=== PATIENT | female | born 1960 | race Hispanic/Latino ===

== ENCOUNTER 2018-05-07 13:20 | Emergency (ER) | payer BC, OTHER ==
[2018-05-07] MEDS ORDERED: NACL 0.9% 1000 ML 1,000 ML ONE ×2 (14:07→17:47)
[2018-05-07] MEDS ORDERED: NACL 0.9% 1000 ML 1,000 ML IV ONE ×2 (14:27→17:49)
[2018-05-07 14:34] LABS: Basophils % (Auto) 0.7 % (0.0-1.8); Eosinophils % (Auto) 0.8 % (0.0-4.3); Hematocrit 44.4 % (30.3-42.9); Hemoglobin 15.6 gm/dl (10.1-14.3); Lymphocytes # (Auto) 1.5 K/mm3 (1.2-5.4); Lymphocytes % (Auto) 24.2 % (13.4-35.0); Mean Corpuscular HGB Conc 35 % (30-34); Mean Corpuscular Volume 90 fl (79-97); Monocytes # (Auto) 0.6 K/mm3 (0.0-0.8); Monocytes % (Auto) 10.4 % (0.0-7.3); Platelet Count 373 K/mm3 (140-440); Red Blood Count 4.95 M/mm3 (3.65-5.03); Red Cell Distribution Width 12.3 % (13.2-15.2)
[2018-05-07 16:04] LABS: INR 0.95 (0.87-1.13); Partial Thromboplastin Time 27.7 Sec. (24.2-36.6)
[2018-05-07 16:14] LABS: Creatine Kinase MB 1.3 ng/mL (0.0-4.0)
--- NOTE | 2018-05-07 16:14 | XRay Report ---
FINAL REPORT EXAM: XR CHEST 1V AP HISTORY: hypertension TECHNIQUE: One view examination of the chest PRIORS: None FINDINGS: Slight thoracic spine curvature with lower right apex. Atherosclerotic change in the thoracic aorta. Degenerative change in the thoracic spine. There is no visible pulmonary consolidation, pleural effusion, or pneumothorax. Cardiac silhouette size is normal without vascular congestion. IMPRESSION: No evidence of acute cardiopulmonary disease in the visualized chest
[2018-05-07 16:18] LABS: Alanine Aminotransferase 14 units/L (7-56); Albumin 4.1 g/dL (3.9-5); BUN/Creatinine Ratio 20; Blood Urea Nitrogen 12 mg/dL (7-17); Calcium 8.9 mg/dL (8.4-10.2); Hemolysis Index 28
--- NOTE | 2018-05-07 16:26 | Emergency Department Report ---
ED General Adult HPI - General Chief complaint: Weakness Stated complaint: DEHYDRARTION Time Seen by Provider: 05/07/18 14:15 Source: patient Mode of arrival: Ambulatory Limitations: No Limitations - History of Present Illness Initial comments: The 7-year-old female complains of severe pain and an enlarging red area in her left thigh area. She states that she has had "for staph infections in the past. She complains of subjective fever and chills. She did not measure her temperature. -: days(s) Location: left, lower extremity Radiation: non-radiation Quality: aching Consistency: constant Improves with: none Worsens with: none Associated Symptoms: denies other symptoms Treatments Prior to Arrival: none - Related Data Allergies Allergy/AdvReac Type Severity Reaction Status Date / Time No Known Allergies Allergy Verified 05/07/18 13:35 ED Review of Systems ROS: Stated complaint: DEHYDRARTION Other details as noted in HPI Constitutional: chills, fever Eyes: denies: eye pain, eye discharge, vision change ENT: denies: ear pain, throat pain Respiratory: denies: cough, shortness of breath, wheezing Cardiovascular: denies: chest pain, palpitations Endocrine: no symptoms reported Gastrointestinal: denies: abdominal pain, nausea, diarrhea Genitourinary: denies: urgency, dysuria, discharge Musculoskeletal: denies: back pain, joint swelling, arthralgia Skin: denies: rash, lesions Neurological: denies: headache, weakness, paresthesias Psychiatric: denies: anxiety, depression Hematological/Lymphatic: denies: easy bleeding, easy bruising ED Past Medical Hx - Past Medical History Previous Medical History?: Yes Hx Psychiatric Treatment: Yes (depression) - Surgical History Past Surgical History?: No - Social History Smoking Status: Never Smoker Substance Use Type: Prescribed (admits oxycodone abuse) ED Physical Exam - General Limitations: No Limitations General appearance: alert, in no apparent distress - Head Head exam: Present: atraumatic, normocephalic - Eye Eye exam: Present: normal appearance. Absent: scleral icterus - ENT ENT exam: Present: mucous membranes moist - Neck Neck exam: Present: normal inspection. Absent: tenderness, meningismus - Respiratory Respiratory exam: Present: normal lung sounds bilaterally. Absent: respiratory distress - Cardiovascular Cardiovascular Exam: Present: regular rate, normal rhythm. Absent: systolic murmur, diastolic murmur, rubs, gallop - GI/Abdominal GI/Abdominal exam: Present: soft, normal bowel sounds. Absent: distended, tenderness, guarding, rebound, rigid - Extremities Exam Extremities exam: Present: other (large erythematous patch inner aspect of left thigh which is non-contiguous to the perineal or the groin. There is central fullness but not fer fluctuance. There is no tract or drainage.) - Back Exam Back exam: Present: normal inspection. Absent: tenderness, CVA tenderness (L) - Neurological Exam Neurological exam: Present: alert, oriented X3, CN II-XII intact. Absent: motor sensory deficit - Psychiatric Psychiatric exam: Present: normal affect, normal mood - Skin Skin exam: Present: warm, dry, intact, normal color. Absent: rash - Other Other exam information: Neurovascular exam is intact ED Course Vital Signs 05/07/18 05/07/18 05/07/18 13:36 14:12 14:16 Temperature 98.4 F Pulse Rate 82 81 76 Respiratory 16 13 13 Rate Blood Pressure 123/77 O2 Sat by Pulse 97 99 Oximetry 05/07/18 14:30 Temperature Pulse Rate 78 Respiratory 15 Rate Blood Pressure 148/86 O2 Sat by Pulse Oximetry - Reevaluation(s) Reevaluation #1: Patient was begun on vancomycin. She'll be admitted by Dr. Gallagher for further intravenous antibiotics. Surgical consult is ordered. 05/07/18 16:45 ED Medical Decision Making - Lab Data Result diagrams: 05/07/18 14:21 05/07/18 14:21 Laboratory Results - last 24 hr 05/07/18 05/07/18 05/07/18 14:21 14:21 14:21 WBC 6.0 RBC 4.95 Hgb 15.6 H Hct 44.4 H MCV 90 MCH 32 MCHC 35 H RDW 12.3 L Plt Count 373 Lymph % (Auto) 24.2 Floyd % (Auto) 10.4 H Eos % (Auto) 0.8 Baso % (Auto) 0.7 Lymph # 1.5 Floyd # 0.6 Eos # 0.0 Baso # 0.0 Seg Neutrophils % 63.9 Seg Neutrophils # 3.8 PT INR APTT Sodium 139 Potassium 3.8 Chloride 101.5 Carbon Dioxide 24 Anion Gap 17 BUN 12 Creatinine 0.6 L Estimated GFR > 60 BUN/Creatinine Ratio 20 Glucose 94 POC Glucose Calcium 8.9 Magnesium Total Bilirubin 0.50 AST 18 ALT 14 Alkaline Phosphatase 86 Ammonia Total Creatine Kinase CK-MB (CK-2) CK-MB (CK-2) Rel Index Troponin T NT-Pro-B Natriuret Pep Total Protein 6.5 Albumin 4.1 Albumin/Globulin Ratio 1.7 TSH 1.760 Plasma/Serum Alcohol 05/07/18 05/07/18 05/07/18 14:21 15:24 15:26 WBC RBC Hgb Hct MCV MCH MCHC RDW Plt Count Lymph % (Auto) Floyd % (Auto) Eos % (Auto) Baso % (Auto) Lymph # Floyd # Eos # Baso # Seg Neutrophils % Seg Neutrophils # PT 13.1 INR 0.95 APTT 27.7 Sodium Potassium Chloride Carbon Dioxide Anion Gap BUN Creatinine Estimated GFR BUN/Creatinine Ratio Glucose POC Glucose 94 Calcium Magnesium Total Bilirubin AST ALT Alkaline Phosphatase Ammonia Total Creatine Kinase CK-MB (CK-2) CK-MB (CK-2) Rel Index Troponin T NT-Pro-B Natriuret Pep Total Protein Albumin Albumin/Globulin Ratio TSH Plasma/Serum Alcohol < 0.01 05/07/18 05/07/18 05/07/18 15:26 15:26 15:26 WBC RBC Hgb Hct MCV MCH MCHC RDW Plt Count Lymph % (Auto) Floyd % (Auto) Eos % (Auto) Baso % (Auto) Lymph # Floyd # Eos # Baso # Seg Neutrophils % Seg Neutrophils # PT INR APTT Sodium Potassium Chloride Carbon Dioxide Anion Gap BUN Creatinine Estimated GFR BUN/Creatinine Ratio Glucose POC Glucose Calcium Magnesium 0.20 L* Total Bilirubin AST ALT Alkaline Phosphatase Ammonia 67.0 H Total Creatine Kinase < 7 L CK-MB (CK-2) 1.3 CK-MB (CK-2) Rel Index 0.0 Troponin T < 0.010 NT-Pro-B Natriuret Pep 27.66 Total Protein Albumin Albumin/Globulin Ratio TSH Plasma/Serum Alcohol Critical care attestation.: If time is entered above; I have spent that time in minutes in the direct care of this critically ill patient, excluding procedure time. ED Disposition Clinical Impression: Abscess of left thigh, Cellulitis of left thigh Disposition: OP ADMIT IP TO THIS HOSP Is pt being admited?: Yes Does the pt Need Aspirin: Yes Condition: Stable Time of Disposition: 16:46
[2018-05-07] MEDS ORDERED: BABY ASPIRIN PO ONE (16:47)
--- NOTE | 2018-05-07 16:54 | Emergency Department Report ---
ED General Adult HPI - General Chief complaint: Weakness Stated complaint: DEHYDRARTION Time Seen by Provider: 05/07/18 14:15 Source: patient Mode of arrival: Ambulatory Limitations: No Limitations - History of Present Illness Initial comments: Reviewed her old female was transferred from [place] with psychiatric [facility] for evaluation. She has not been eating or drinking well for the last week of hospitalization. Apparently she was depressed and I tried herself. She was medically cleared and sent to [place] for evaluation. She arrives and is not communicating but awake. I spoke with the patient's . He confirms that patient has not been eating or drinking much over the last week. She's been poorly communicative. She is less communicative today. However, as far as I can tell, she has been largely simply catatonic since she was admitted a week ago. - Related Data Previous Rx's Medication Instructions Recorded Last Taken Type levoFLOXacin [Levaquin TAB] 500 mg PO QDAY #7 tablet 05/07/18 Unknown Rx Allergies Allergy/AdvReac Type Severity Reaction Status Date / Time No Known Allergies Allergy Verified 05/07/18 13:35 ED Review of Systems ROS: Stated complaint: DEHYDRARTION Other details as noted in HPI Comment: Unobtainable due to pts medical conditions ED Past Medical Hx - Past Medical History Previous Medical History?: Yes Hx Psychiatric Treatment: Yes (depression) - Surgical History Past Surgical History?: No - Social History Smoking Status: Never Smoker Substance Use Type: Prescribed (admits oxycodone abuse) - Medications Home Medications: Home Medications Medication Instructions Recorded Confirmed Last Taken Type levoFLOXacin [Levaquin TAB] 500 mg PO QDAY #7 tablet 05/07/18 Unknown Rx ED Physical Exam - General Limitations: Altered Mental Status (patient is basically somewhat catatonic) General appearance: alert, in no apparent distress - Head Head exam: Present: atraumatic - Eye Eye exam: Present: normal appearance. Absent: scleral icterus - ENT ENT exam: Present: mucous membranes moist - Neck Neck exam: Present: normal inspection. Absent: tenderness, meningismus - Respiratory Respiratory exam: Present: normal lung sounds bilaterally. Absent: respiratory distress - Cardiovascular Cardiovascular Exam: Present: regular rate, normal rhythm. Absent: systolic murmur, diastolic murmur, rubs, gallop - GI/Abdominal GI/Abdominal exam: Present: soft, normal bowel sounds. Absent: distended, tenderness, guarding, rebound, rigid - Extremities Exam Extremities exam: Present: normal inspection - Back Exam Back exam: Present: normal inspection - Neurological Exam Neurological exam: Present: alert, oriented X3, CN II-XII intact. Absent: motor sensory deficit - Psychiatric Psychiatric exam: Present: normal affect, normal mood - Skin Skin exam: Present: warm, dry, intact, normal color. Absent: rash ED Course Vital Signs 05/07/18 05/07/18 05/07/18 13:36 14:12 14:16 Temperature 98.4 F Pulse Rate 82 81 76 Respiratory 16 13 13 Rate Blood Pressure 123/77 O2 Sat by Pulse 97 99 Oximetry 05/07/18 14:30 Temperature Pulse Rate 78 Respiratory 15 Rate Blood Pressure 148/86 O2 Sat by Pulse Oximetry ED Medical Decision Making - Lab Data Result diagrams: 05/07/18 14:21 05/07/18 14:21 Laboratory Results - last 24 hr 05/07/18 05/07/18 05/07/18 14:21 14:21 14:21 WBC 6.0 RBC 4.95 Hgb 15.6 H Hct 44.4 H MCV 90 MCH 32 MCHC 35 H RDW 12.3 L Plt Count 373 Lymph % (Auto) 24.2 Nicholas % (Auto) 10.4 H Eos % (Auto) 0.8 Baso % (Auto) 0.7 Lymph # 1.5 Nicholas # 0.6 Eos # 0.0 Baso # 0.0 Seg Neutrophils % 63.9 Seg Neutrophils # 3.8 PT INR APTT Sodium 139 Potassium 3.8 Chloride 101.5 Carbon Dioxide 24 Anion Gap 17 BUN 12 Creatinine 0.6 L Estimated GFR > 60 BUN/Creatinine Ratio 20 Glucose 94 POC Glucose Calcium 8.9 Magnesium Total Bilirubin 0.50 AST 18 ALT 14 Alkaline Phosphatase 86 Ammonia Total Creatine Kinase CK-MB (CK-2) CK-MB (CK-2) Rel Index Troponin T NT-Pro-B Natriuret Pep Total Protein 6.5 Albumin 4.1 Albumin/Globulin Ratio 1.7 TSH 1.760 Plasma/Serum Alcohol 05/07/18 05/07/18 05/07/18 14:21 15:24 15:26 WBC RBC Hgb Hct MCV MCH MCHC RDW Plt Count Lymph % (Auto) Nicholas % (Auto) Eos % (Auto) Baso % (Auto) Lymph # Nicholas # Eos # Baso # Seg Neutrophils % Seg Neutrophils # PT 13.1 INR 0.95 APTT 27.7 Sodium Potassium Chloride Carbon Dioxide Anion Gap BUN Creatinine Estimated GFR BUN/Creatinine Ratio Glucose POC Glucose 94 Calcium Magnesium Total Bilirubin AST ALT Alkaline Phosphatase Ammonia Total Creatine Kinase CK-MB (CK-2) CK-MB (CK-2) Rel Index Troponin T NT-Pro-B Natriuret Pep Total Protein Albumin Albumin/Globulin Ratio TSH Plasma/Serum Alcohol < 0.01 05/07/18 05/07/18 05/07/18 15:26 15:26 15:26 WBC RBC Hgb Hct MCV MCH MCHC RDW Plt Count Lymph % (Auto) Nicholas % (Auto) Eos % (Auto) Baso % (Auto) Lymph # Nicholas # Eos # Baso # Seg Neutrophils % Seg Neutrophils # PT INR APTT Sodium Potassium Chloride Carbon Dioxide Anion Gap BUN Creatinine Estimated GFR BUN/Creatinine Ratio Glucose POC Glucose Calcium Magnesium 0.20 L* Total Bilirubin AST ALT Alkaline Phosphatase Ammonia 67.0 H Total Creatine Kinase < 7 L CK-MB (CK-2) 1.3 CK-MB (CK-2) Rel Index 0.0 Troponin T < 0.010 NT-Pro-B Natriuret Pep 27.66 Total Protein Albumin Albumin/Globulin Ratio TSH Plasma/Serum Alcohol 05/07/18 15:26 WBC RBC Hgb Hct MCV MCH MCHC RDW Plt Count Lymph % (Auto) Nicholas % (Auto) Eos % (Auto) Baso % (Auto) Lymph # Nicholas # Eos # Baso # Seg Neutrophils % Seg Neutrophils # PT INR APTT Sodium Potassium Chloride Carbon Dioxide Anion Gap BUN Creatinine Estimated GFR BUN/Creatinine Ratio Glucose POC Glucose Calcium Magnesium Total Bilirubin AST ALT Alkaline Phosphatase Ammonia Total Creatine Kinase CK-MB (CK-2) CK-MB (CK-2) Rel Index Troponin T NT-Pro-B Natriuret Pep Total Protein Albumin Albumin/Globulin Ratio TSH 1.560 Plasma/Serum Alcohol Laboratory Results - last 24 hr 05/07/18 05/07/18 05/07/18 14:21 14:21 14:21 WBC 6.0 RBC 4.95 Hgb 15.6 H Hct 44.4 H MCV 90 MCH 32 MCHC 35 H RDW 12.3 L Plt Count 373 Lymph % (Auto) 24.2 Nicholas % (Auto) 10.4 H Eos % (Auto) 0.8 Baso % (Auto) 0.7 Lymph # 1.5 Nicholas # 0.6 Eos # 0.0 Baso # 0.0 Seg Neutrophils % 63.9 Seg Neutrophils # 3.8 PT INR APTT Sodium 139 Potassium 3.8 Chloride 101.5 Carbon Dioxide 24 Anion Gap 17 BUN 12 Creatinine 0.6 L Estimated GFR > 60 BUN/Creatinine Ratio 20 Glucose 94 POC Glucose Calcium 8.9 Magnesium Total Bilirubin 0.50 AST 18 ALT 14 Alkaline Phosphatase 86 Ammonia Total Creatine Kinase CK-MB (CK-2) CK-MB (CK-2) Rel Index Troponin T NT-Pro-B Natriuret Pep Total Protein 6.5 Albumin 4.1 Albumin/Globulin Ratio 1.7 TSH 1.760 Plasma/Serum Alcohol 05/07/18 05/07/18 05/07/18 14:21 15:24 15:26 WBC RBC Hgb Hct MCV MCH MCHC RDW Plt Count Lymph % (Auto) Nicholas % (Auto) Eos % (Auto) Baso % (Auto) Lymph # Nicholas # Eos # Baso # Seg Neutrophils % Seg Neutrophils # PT 13.1 INR 0.95 APTT 27.7 Sodium Potassium Chloride Carbon Dioxide Anion Gap BUN Creatinine Estimated GFR BUN/Creatinine Ratio Glucose POC Glucose 94 Calcium Magnesium Total Bilirubin AST ALT Alkaline Phosphatase Ammonia Total Creatine Kinase CK-MB (CK-2) CK-MB (CK-2) Rel Index Troponin T NT-Pro-B Natriuret Pep Total Protein Albumin Albumin/Globulin Ratio TSH Plasma/Serum Alcohol < 0.01 05/07/18 05/07/18 05/07/18 15:26 15:26 15:26 WBC RBC Hgb Hct MCV MCH MCHC RDW Plt Count Lymph % (Auto) Nicholas % (Auto) Eos % (Auto) Baso % (Auto) Lymph # Nicholas # Eos # Baso # Seg Neutrophils % Seg Neutrophils # PT INR APTT Sodium Potassium Chloride Carbon Dioxide Anion Gap BUN Creatinine Estimated GFR BUN/Creatinine Ratio Glucose POC Glucose Calcium Magnesium 0.20 L* Total Bilirubin AST ALT Alkaline Phosphatase Ammonia 67.0 H Total Creatine Kinase < 7 L CK-MB (CK-2) 1.3 CK-MB (CK-2) Rel Index 0.0 Troponin T < 0.010 NT-Pro-B Natriuret Pep 27.66 Total Protein Albumin Albumin/Globulin Ratio TSH Plasma/Serum Alcohol 05/07/18 15:26 WBC RBC Hgb Hct MCV MCH MCHC RDW Plt Count Lymph % (Auto) Nicholas % (Auto) Eos % (Auto) Baso % (Auto) Lymph # Nicholas # Eos # Baso # Seg Neutrophils % Seg Neutrophils # PT INR APTT Sodium Potassium Chloride Carbon Dioxide Anion Gap BUN Creatinine Estimated GFR BUN/Creatinine Ratio Glucose POC Glucose Calcium Magnesium Total Bilirubin AST ALT Alkaline Phosphatase Ammonia Total Creatine Kinase CK-MB (CK-2) CK-MB (CK-2) Rel Index Troponin T NT-Pro-B Natriuret Pep Total Protein Albumin Albumin/Globulin Ratio TSH 1.560 Plasma/Serum Alcohol Laboratory Results - last 24 hr 05/07/18 05/07/18 05/07/18 14:21 14:21 14:21 WBC 6.0 RBC 4.95 Hgb 15.6 H Hct 44.4 H MCV 90 MCH 32 MCHC 35 H RDW 12.3 L Plt Count 373 Lymph % (Auto) 24.2 Nicholas % (Auto) 10.4 H Eos % (Auto) 0.8 Baso % (Auto) 0.7 Lymph # 1.5 Nicholas # 0.6 Eos # 0.0 Baso # 0.0 Seg Neutrophils % 63.9 Seg Neutrophils # 3.8 PT INR APTT Sodium 139 Potassium 3.8 Chloride 101.5 Carbon Dioxide 24 Anion Gap 17 BUN 12 Creatinine 0.6 L Estimated GFR > 60 BUN/Creatinine Ratio 20 Glucose 94 POC Glucose Calcium 8.9 Magnesium Total Bilirubin 0.50 AST 18 ALT 14 Alkaline Phosphatase 86 Ammonia Total Creatine Kinase CK-MB (CK-2) CK-MB (CK-2) Rel Index Troponin T NT-Pro-B Natriuret Pep Total Protein 6.5 Albumin 4.1 Albumin/Globulin Ratio 1.7 TSH 1.760 Plasma/Serum Alcohol 05/07/18 05/07/18 05/07/18 14:21 15:24 15:26 WBC RBC Hgb Hct MCV MCH MCHC RDW Plt Count Lymph % (Auto) Nicholas % (Auto) Eos % (Auto) Baso % (Auto) Lymph # Nicholas # Eos # Baso # Seg Neutrophils % Seg Neutrophils # PT 13.1 INR 0.95 APTT 27.7 Sodium Potassium Chloride Carbon Dioxide Anion Gap BUN Creatinine Estimated GFR BUN/Creatinine Ratio Glucose POC Glucose 94 Calcium Magnesium Total Bilirubin AST ALT Alkaline Phosphatase Ammonia Total Creatine Kinase CK-MB (CK-2) CK-MB (CK-2) Rel Index Troponin T NT-Pro-B Natriuret Pep Total Protein Albumin Albumin/Globulin Ratio TSH Plasma/Serum Alcohol < 0.01 05/07/18 05/07/18 05/07/18 15:26 15:26 15:26 WBC RBC Hgb Hct MCV MCH MCHC RDW Plt Count Lymph % (Auto) Nicholas % (Auto) Eos % (Auto) Baso % (Auto) Lymph # Nicholas # Eos # Baso # Seg Neutrophils % Seg Neutrophils # PT INR APTT Sodium Potassium Chloride Carbon Dioxide Anion Gap BUN Creatinine Estimated GFR BUN/Creatinine Ratio Glucose POC Glucose Calcium Magnesium 0.20 L* Total Bilirubin AST ALT Alkaline Phosphatase Ammonia 67.0 H Total Creatine Kinase < 7 L CK-MB (CK-2) 1.3 CK-MB (CK-2) Rel Index 0.0 Troponin T < 0.010 NT-Pro-B Natriuret Pep 27.66 Total Protein Albumin Albumin/Globulin Ratio TSH Plasma/Serum Alcohol 05/07/18 15:26 WBC RBC Hgb Hct MCV MCH MCHC RDW Plt Count Lymph % (Auto) Nicholas % (Auto) Eos % (Auto) Baso % (Auto) Lymph # Nicholas # Eos # Baso # Seg Neutrophils % Seg Neutrophils # PT INR APTT Sodium Potassium Chloride Carbon Dioxide Anion Gap BUN Creatinine Estimated GFR BUN/Creatinine Ratio Glucose POC Glucose Calcium Magnesium Total Bilirubin AST ALT Alkaline Phosphatase Ammonia Total Creatine Kinase CK-MB (CK-2) CK-MB (CK-2) Rel Index Troponin T NT-Pro-B Natriuret Pep Total Protein Albumin Albumin/Globulin Ratio TSH 1.560 Plasma/Serum Alcohol Laboratory Results - last 24 hr 05/07/18 05/07/18 05/07/18 14:21 14:21 14:21 WBC 6.0 RBC 4.95 Hgb 15.6 H Hct 44.4 H MCV 90 MCH 32 MCHC 35 H RDW 12.3 L Plt Count 373 Lymph % (Auto) 24.2 Nicholas % (Auto) 10.4 H Eos % (Auto) 0.8 Baso % (Auto) 0.7 Lymph # 1.5 Nicholas # 0.6 Eos # 0.0 Baso # 0.0 Seg Neutrophils % 63.9 Seg Neutrophils # 3.8 PT INR APTT Sodium 139 Potassium 3.8 Chloride 101.5 Carbon Dioxide 24 Anion Gap 17 BUN 12 Creatinine 0.6 L Estimated GFR > 60 BUN/Creatinine Ratio 20 Glucose 94 POC Glucose Calcium 8.9 Magnesium Total Bilirubin 0.50 AST 18 ALT 14 Alkaline Phosphatase 86 Ammonia Total Creatine Kinase CK-MB (CK-2) CK-MB (CK-2) Rel Index Troponin T NT-Pro-B Natriuret Pep Total Protein 6.5 Albumin 4.1 Albumin/Globulin Ratio 1.7 TSH 1.760 Plasma/Serum Alcohol 05/07/18 05/07/18 05/07/18 14:21 15:24 15:26 WBC RBC Hgb Hct MCV MCH MCHC RDW Plt Count Lymph % (Auto) Nicholas % (Auto) Eos % (Auto) Baso % (Auto) Lymph # Nicholas # Eos # Baso # Seg Neutrophils % Seg Neutrophils # PT 13.1 INR 0.95 APTT 27.7 Sodium Potassium Chloride Carbon Dioxide Anion Gap BUN Creatinine Estimated GFR BUN/Creatinine Ratio Glucose POC Glucose 94 Calcium Magnesium Total Bilirubin AST ALT Alkaline Phosphatase Ammonia Total Creatine Kinase CK-MB (CK-2) CK-MB (CK-2) Rel Index Troponin T NT-Pro-B Natriuret Pep Total Protein Albumin Albumin/Globulin Ratio TSH Plasma/Serum Alcohol < 0.01 05/07/18 05/07/18 05/07/18 15:26 15:26 15:26 WBC RBC Hgb Hct MCV MCH MCHC RDW Plt Count Lymph % (Auto) Nicholas % (Auto) Eos % (Auto) Baso % (Auto) Lymph # Nicholas # Eos # Baso # Seg Neutrophils % Seg Neutrophils # PT INR APTT Sodium Potassium Chloride Carbon Dioxide Anion Gap BUN Creatinine Estimated GFR BUN/Creatinine Ratio Glucose POC Glucose Calcium Magnesium 0.20 L* Total Bilirubin AST ALT Alkaline Phosphatase Ammonia 67.0 H Total Creatine Kinase < 7 L CK-MB (CK-2) 1.3 CK-MB (CK-2) Rel Index 0.0 Troponin T < 0.010 NT-Pro-B Natriuret Pep 27.66 Total Protein Albumin Albumin/Globulin Ratio TSH Plasma/Serum Alcohol 05/07/18 15:26 WBC RBC Hgb Hct MCV MCH MCHC RDW Plt Count Lymph % (Auto) Nicholas % (Auto) Eos % (Auto) Baso % (Auto) Lymph # Nicholas # Eos # Baso # Seg Neutrophils % Seg Neutrophils # PT INR APTT Sodium Potassium Chloride Carbon Dioxide Anion Gap BUN Creatinine Estimated GFR BUN/Creatinine Ratio Glucose POC Glucose Calcium Magnesium Total Bilirubin AST ALT Alkaline Phosphatase Ammonia Total Creatine Kinase CK-MB (CK-2) CK-MB (CK-2) Rel Index Troponin T NT-Pro-B Natriuret Pep Total Protein Albumin Albumin/Globulin Ratio TSH 1.560 Plasma/Serum Alcohol Laboratory Results - last 24 hr 05/07/18 05/07/18 05/07/18 14:21 14:21 14:21 WBC 6.0 RBC 4.95 Hgb 15.6 H Hct 44.4 H MCV 90 MCH 32 MCHC 35 H RDW 12.3 L Plt Count 373 Lymph % (Auto) 24.2 Nicholas % (Auto) 10.4 H Eos % (Auto) 0.8 Baso % (Auto) 0.7 Lymph # 1.5 Nicholas # 0.6 Eos # 0.0 Baso # 0.0 Seg Neutrophils % 63.9 Seg Neutrophils # 3.8 PT INR APTT Sodium 139 Potassium 3.8 Chloride 101.5 Carbon Dioxide 24 Anion Gap 17 BUN 12 Creatinine 0.6 L Estimated GFR > 60 BUN/Creatinine Ratio 20 Glucose 94 POC Glucose Calcium 8.9 Magnesium Total Bilirubin 0.50 AST 18 ALT 14 Alkaline Phosphatase 86 Ammonia Total Creatine Kinase CK-MB (CK-2) CK-MB (CK-2) Rel Index Troponin T NT-Pro-B Natriuret Pep Total Protein 6.5 Albumin 4.1 Albumin/Globulin Ratio 1.7 TSH 1.760 Urine Color Urine Turbidity Urine pH Ur Specific [place] Urine Protein Urine Glucose (UA) Urine Ketones Urine Blood Urine Nitrite Urine Bilirubin Urine Urobilinogen Ur Leukocyte Esterase Urine WBC (Auto) Urine RBC (Auto) Urine Bacteria (Auto) Urine Mucus Urine Yeast (Budding) Urine Opiates Screen Urine Methadone Screen Ur Barbiturates Screen Ur Phencyclidine Scrn Ur Amphetamines Screen U Benzodiazepines Scrn Urine Cocaine Screen U Marijuana (THC) Screen Drugs of Abuse Note Plasma/Serum Alcohol 05/07/18 05/07/18 05/07/18 14:21 15:24 15:26 WBC RBC Hgb Hct MCV MCH MCHC RDW Plt Count Lymph % (Auto) Nicholas % (Auto) Eos % (Auto) Baso % (Auto) Lymph # Nicholas # Eos # Baso # Seg Neutrophils % Seg Neutrophils # PT 13.1 INR 0.95 APTT 27.7 Sodium Potassium Chloride Carbon Dioxide Anion Gap BUN Creatinine Estimated GFR BUN/Creatinine Ratio Glucose POC Glucose 94 Calcium Magnesium Total Bilirubin AST ALT Alkaline Phosphatase Ammonia Total Creatine Kinase CK-MB (CK-2) CK-MB (CK-2) Rel Index Troponin T NT-Pro-B Natriuret Pep Total Protein Albumin Albumin/Globulin Ratio TSH Urine Color Urine Turbidity Urine pH Ur Specific [place] Urine Protein Urine Glucose (UA) Urine Ketones Urine Blood Urine Nitrite Urine Bilirubin Urine Urobilinogen Ur Leukocyte Esterase Urine WBC (Auto) Urine RBC (Auto) Urine Bacteria (Auto) Urine Mucus Urine Yeast (Budding) Urine Opiates Screen Urine Methadone Screen Ur Barbiturates Screen Ur Phencyclidine Scrn Ur Amphetamines Screen U Benzodiazepines Scrn Urine Cocaine Screen U Marijuana (THC) Screen Drugs of Abuse Note Plasma/Serum Alcohol < 0.01 05/07/18 05/07/18 05/07/18 15:26 15:26 15:26 WBC RBC Hgb Hct MCV MCH MCHC RDW Plt Count Lymph % (Auto) Nicholas % (Auto) Eos % (Auto) Baso % (Auto) Lymph # Nicholas # Eos # Baso # Seg Neutrophils % Seg Neutrophils # PT INR APTT Sodium Potassium Chloride Carbon Dioxide Anion Gap BUN Creatinine Estimated GFR BUN/Creatinine Ratio Glucose POC Glucose Calcium Magnesium 0.20 L* Total Bilirubin AST ALT Alkaline Phosphatase Ammonia 67.0 H Total Creatine Kinase < 7 L CK-MB (CK-2) 1.3 CK-MB (CK-2) Rel Index 0.0 Troponin T < 0.010 NT-Pro-B Natriuret Pep 27.66 Total Protein Albumin Albumin/Globulin Ratio TSH Urine Color Urine Turbidity Urine pH Ur Specific [place] Urine Protein Urine Glucose (UA) Urine Ketones Urine Blood Urine Nitrite Urine Bilirubin Urine Urobilinogen Ur Leukocyte Esterase Urine WBC (Auto) Urine RBC (Auto) Urine Bacteria (Auto) Urine Mucus Urine Yeast (Budding) Urine Opiates Screen Urine Methadone Screen Ur Barbiturates Screen Ur Phencyclidine Scrn Ur Amphetamines Screen U Benzodiazepines Scrn Urine Cocaine Screen U Marijuana (THC) Screen Drugs of Abuse Note Plasma/Serum Alcohol 05/07/18 05/07/18 05/07/18 15:26 Unknown Unknown WBC RBC Hgb Hct MCV MCH MCHC RDW Plt Count Lymph % (Auto) Nicholas % (Auto) Eos % (Auto) Baso % (Auto) Lymph # Nicholas # Eos # Baso # Seg Neutrophils % Seg Neutrophils # PT INR APTT Sodium Potassium Chloride Carbon Dioxide Anion Gap BUN Creatinine Estimated GFR BUN/Creatinine Ratio Glucose POC Glucose Calcium Magnesium Total Bilirubin AST ALT Alkaline Phosphatase Ammonia Total Creatine Kinase CK-MB (CK-2) CK-MB (CK-2) Rel Index Troponin T NT-Pro-B Natriuret Pep Total Protein Albumin Albumin/Globulin Ratio TSH 1.560 Urine Color Yellow Urine Turbidity Clear Urine pH 6.0 Ur Specific [place] 1.010 Urine Protein <15 mg/dl Urine Glucose (UA) Neg Urine Ketones Neg Urine Blood Neg Urine Nitrite Neg Urine Bilirubin Neg Urine Urobilinogen < 2.0 Ur Leukocyte Esterase Lg Urine WBC (Auto) 24.0 H Urine RBC (Auto) 5.0 Urine Bacteria (Auto) 1+ Urine Mucus Few Urine Yeast (Budding) Few Urine Opiates Screen Presumptive negative Urine Methadone Screen Presumptive negative Ur Barbiturates Screen Presumptive negative Ur Phencyclidine Scrn Presumptive negative Ur Amphetamines Screen Presumptive negative U Benzodiazepines Scrn Presumptive negative Urine Cocaine Screen Presumptive negative U Marijuana (THC) Screen Presumptive negative Drugs of Abuse Note Disclamer Plasma/Serum Alcohol Critical care attestation.: If time is entered above; I have spent that time in minutes in the direct care of this critically ill patient, excluding procedure time. ED Disposition Clinical Impression: Catatonia, Dehydration UTI (urinary tract infection) Qualifiers: Urinary tract infection type: site unspecified Hematuria presence: without hematuria Qualified Code(s): N39.0 - Urinary tract infection, site not specified Disposition: [id number]/TX-65 PSY HOSP/PSY UNIT Is pt being admited?: No Does the pt Need Aspirin: No Condition: Stable Instructions: Urinary Tract Infection in Women (ED), Dehydration (ED) Additional Instructions: Patient was found to have urinary tract infection. She was treated with ceftriaxone 1 g IV. Urine culture is pending. A prescription for Levaquin is written. This should be able treatment for her UTI. However the culture should be checked. Return to the emergency department as needed for lack of by mouth intake. However the patient would be best treated in a psychiatric facility for her catatonic state. Prescriptions: levoFLOXacin [Levaquin TAB] 500 mg PO QDAY #7 tablet Referrals: PRIMARY CARE, [Primary Care Provider] - 3-5 Days usual, covering manager laundry [Other] - 24 Hours Time of Disposition: 19:23
[2018-05-07] MEDS ORDERED: MAGNESIUM SULFATE 2GM/50ML 2 GM/50 ML BAG IV ONE (17:00)
--- NOTE | 2018-05-07 17:06 | Cat Scan Report ---
FINAL REPORT EXAM: CT HEAD WO CONTRAST HISTORY: AMS TECHNIQUE: CT examination of the head without IV contrast PRIORS: None. FINDINGS: No acute air-fluid level visualized in the included air-filled sinuses. Bone windows demonstrate no acute fracture. There is ventricular and sulcal prominence compatible with global cerebrocortical atrophy. The brain contains no mass, mass effect, hemorrhage, or acute infarct. There is no extra-axial intracranial bleed, brain bleed, or midline shift. IMPRESSION: No acute CVA, intracranial bleed, or brain mass
[2018-05-07 18:55] LABS: Bilirubin,Urine NEG (Negative); Color,Urine Yellow (Yellow)
[2018-05-07 18:56] LABS: Bacteria,Urine 1+ /HPF (Negative); Blood,Urine NEG (Negative); Mucus,Urine FEW /HPF; Protein,Urine <15 mg/dL mg/dL (Negative); Urobilinogen,Urine < 2.0 mg/dL (<2.0)
[2018-05-07 18:59] LABS: Amphetamine Screen,Urine PRESUMPTIVE NEGATIVE; Benzodiazepines Screen,Urine PRESUMPTIVE NEGATIVE; Cannabinoid Screen,Urine PRESUMPTIVE NEGATIVE; Cocaine Screen,Urine PRESUMPTIVE NEGATIVE; Methadone Screen,Urine PRESUMPTIVE NEGATIVE; Opiate Screen,Urine PRESUMPTIVE NEGATIVE
[2018-05-07] MEDS ORDERED: ROCEPHIN/NS 1 GM/50 ML 1 GM/50 ML BAG IV ONE (19:20)
[2018-05-07 21:37] VITALS: BP 138/75
== END 2018-05-07 22:03 ==
LOC: ED 13:20
DX: F20.2 Catatonic schizophrenia (principal); E86.0 Dehydration; N39.0 Urinary tract infection, site not specified
CPT/HCPCS: 36415; 70450; 71045; 80053; 80307; 81001; 82140; 82550; 82553; 82962; 83735; 83880; 84443; 84484; 85025; 85610; 85730; 87040; 96361; 96365; 96367; 99285; G0480; J0696; J3475; J7030; 80320

== ENCOUNTER 2018-05-10 12:39 | Emergency (ER) | payer BC ==
[2018-05-10 14:12] LABS: Basophils % (Auto) 0.7 % (0.0-1.8); Eosinophils # (Auto) 0.1 K/mm3 (0.0-0.4); Eosinophils % (Auto) 1.6 % (0.0-4.3); Hematocrit 41.7 % (30.3-42.9); Hemoglobin 14.2 gm/dl (10.1-14.3); Lymphocytes # (Auto) 1.2 K/mm3 (1.2-5.4); Lymphocytes % (Auto) 23.1 % (13.4-35.0); Mean Corpuscular HGB Conc 34 % (30-34); Mean Corpuscular Volume 91 fl (79-97); Monocytes # (Auto) 0.7 K/mm3 (0.0-0.8); Monocytes % (Auto) 13.1 % (0.0-7.3); Platelet Count 337 K/mm3 (140-440); Red Blood Count 4.57 M/mm3 (3.65-5.03); Red Cell Distribution Width 12.2 % (13.2-15.2)
--- NOTE | 2018-05-10 14:24 | Emergency Department Report ---
HPI - General Chief Complaint: Altered Mental Status Time Seen by Provider: 05/10/18 13:47 - HPI HPI: Room 10 The patient is a 49-year-old female presented with a chief complaint of "delirium." The patient is currently at [facility] for depression. Per EMS the patient has been nonverbal. Per [facility] transfer note at 09:50 there was an order to "send patient to ED due to delirium. CT scan of head to rule out any abnormalities of the brain that would be causing the delirium." The patient does not answer questions but just shakes her head "no" when asked if anything is bothering her Location: Mental state Duration: [See above] Quality: Nonverbal Severity: Moderate Modifying factors: [see above] Context: [see above] Mode of transportation: [not driving] ED Past Medical Hx - Past Medical History Previous Medical History?: Yes Hx Psychiatric Treatment: Yes (depression) - Family History Family history: no significant - Social History Smoking Status: Unknown if ever smoked - Medications Home Medications: Home Medications Medication Instructions Recorded Confirmed Last Taken Type levoFLOXacin [Levaquin TAB] 500 mg PO QDAY #7 tablet 05/07/18 Unknown Rx ED Review of Systems ROS: Stated complaint: CT SCAN Other details as noted in HPI Comment: Unobtainable due to pts medical conditions Physical Exam - Physical Exam Vital Signs: Vital Signs 05/10/18 13:20 Temperature 98.4 F Pulse Rate 84 Blood Pressure 130/74 O2 Sat by Pulse 99 Oximetry Physical Exam: GENERAL: The patient is well-developed well-nourished female lying on stretcher not appearing to be in acute distress. [] HEENT: Normocephalic. Atraumatic. Patient has moist mucous membranes. NECK: Supple. Trachea midline CHEST/LUNGS: Clear to auscultation. There is no respiratory distress noted. HEART/CARDIOVASCULAR: Regular. There is no tachycardia. There is no gallop rub or murmur. ABDOMEN: Abdomen is soft, nontender. Patient has normal bowel sounds. There is no abdominal distention. SKIN: There is no rash. There is no edema. There is no diaphoresis. NEURO: The patient is awake but keeps her eyes closed. The patient does not speak but shakes her head "no" MUSCULOSKELETAL: There is no evidence of acute injury. ED Course Vital Signs 05/10/18 13:20 Temperature 98.4 F Pulse Rate 84 Blood Pressure 130/74 O2 Sat by Pulse 99 Oximetry ED Medical Decision Making - Lab Data Result diagrams: 05/10/18 14:00 05/10/18 14:00 Laboratory Tests 05/10/18 05/10/18 05/10/18 14:00 14:00 14:00 WBC 5.2 RBC 4.57 Hgb 14.2 Hct 41.7 MCV 91 MCH 31 MCHC 34 RDW 12.2 L Plt Count 337 Lymph % (Auto) 23.1 [place] % (Auto) 13.1 H Eos % (Auto) 1.6 Baso % (Auto) 0.7 Lymph # 1.2 [place] # 0.7 Eos # 0.1 Baso # 0.0 Seg Neutrophils % 61.5 Seg Neutrophils # 3.2 Sodium 142 Potassium 4.2 Chloride 102.2 Carbon Dioxide 31 H D Anion Gap 13 BUN 15 Creatinine 0.7 Estimated GFR > 60 BUN/Creatinine Ratio 21 Glucose 102 H Calcium 9.5 Total Bilirubin 0.30 AST 19 ALT 13 Alkaline Phosphatase 73 Ammonia 30.0 Total Creatine Kinase 312 H CK-MB (CK-2) 1.8 CK-MB (CK-2) Rel Index 0.5 Troponin T < 0.010 Total Protein 6.6 Albumin 4.0 Albumin/Globulin Ratio 1.5 Plasma/Serum Alcohol 05/10/18 14:00 WBC RBC Hgb Hct MCV MCH MCHC RDW Plt Count Lymph % (Auto) [place] % (Auto) Eos % (Auto) Baso % (Auto) Lymph # [place] # Eos # Baso # Seg Neutrophils % Seg Neutrophils # Sodium Potassium Chloride Carbon Dioxide Anion Gap BUN Creatinine Estimated GFR BUN/Creatinine Ratio Glucose Calcium Total Bilirubin AST ALT Alkaline Phosphatase Ammonia Total Creatine Kinase CK-MB (CK-2) CK-MB (CK-2) Rel Index Troponin T Total Protein Albumin Albumin/Globulin Ratio Plasma/Serum Alcohol < 0.01 - Radiology Data Radiology results: report reviewed (CT head), image reviewed (CT head) [facility] [address] [place] [address] Cat Scan Report Signed Patient: JULIA MOSLEY MR#: [id number] : 1960 Acct:[id number] Age/Sex: 57 / F ADM Date: 05/10/18 Loc: ED Attending Dr: Ordering Physician: JULIO CESAR MACHADO MD Date of Service: 05/10/18 Procedure(s): CT head/brain wo con Accession Number(s): [id number] cc: JULIO CESAR MACHADO MD FINAL REPORT EXAM: CT HEAD/BRAIN WO CON HISTORY: delirium COMPARISON: CT of the head performed on 05/07/2018 TECHNIQUE: Multiple contiguous axial images were obtained from the skullbase to the vertex without administration of IV contrast. FINDINGS: There is mild cerebral cortical atrophy. There is no parenchymal hemorrhage or extra-axial fluid collection. There is no mass or mass effect. There is no acute territorial infarct. The ventricles are midline and are not enlarged. The subarachnoid spaces and basilar cisterns are clear. There is no skull fracture. The paranasal sinuses and mastoid air cells are clear. The bilateral orbits are intact. IMPRESSION: No acute intracranial abnormality. Transcribed By: REYNOLD Dictated By: KENDRA NORRIS MD Electronically Authenticated By: KENDRA NORRIS MD Signed Date/Time: 05/10/181613 DD/ 14 TD/TT: 05/10/181614 - Differential Diagnosis delirium Critical care attestation.: If time is entered above; I have spent that time in minutes in the direct care of this critically ill patient, excluding procedure time. ED Disposition Clinical Impression: Delirium Disposition: [id number]/TX-[id number] PSY HOSP/PSY UNIT Is pt being admited?: No Does the pt Need Aspirin: No Condition: Stable Additional Instructions: Return to the emergency department immediately should you develop worsening symptoms, fever, inability to tolerate food or liquid or any other concerns. Referrals: PRIMARY CAREMD [Primary Care Provider] - 3-5 Days Time of Disposition: 16:20
[2018-05-10 14:32] LABS: Creatine Kinase MB 1.8 ng/mL (0.0-4.0)
[2018-05-10 14:34] LABS: Alanine Aminotransferase 13 units/L (7-56); BUN/Creatinine Ratio 21; Blood Urea Nitrogen 15 mg/dL (7-17); Calcium 9.5 mg/dL (8.4-10.2); Hemolysis Index 6
--- NOTE | 2018-05-10 16:14 | Cat Scan Report ---
FINAL REPORT EXAM: CT HEAD/BRAIN WO CON HISTORY: delirium COMPARISON: CT of the head performed on 05/07/2018 TECHNIQUE: Multiple contiguous axial images were obtained from the skullbase to the vertex without a dministration of IV contrast. FINDINGS: There is mild cerebral cortical atrophy. There is no parenchymal hemorrhage or extra-axial fluid matilde ection. There is no mass or mass effect. There is no acute territorial infarct. The ventricles are mi dline and are not enlarged. The subarachnoid spaces and basilar cisterns are clear. There is no skull fracture. The paranasal sinuses and mastoid air cells are clear. The bilateral orbits are intact. IMPRESSION: No acute intracranial abnormality.
[2018-05-10 20:32] VITALS: BP 132/85
== END 2018-05-10 23:10 ==
LOC: ED 12:39
DX: F32.9 Major depressive disorder, single episode, unspecified (principal); R41.0 Disorientation, unspecified
CPT/HCPCS: 36415; 70450; 80053; 82140; 82550; 82553; 84484; 85025; 99284; G0480; 80320